=== PATIENT | female | born 2000 | race Hispanic/Latino ===

== ENCOUNTER 2023-09-07 23:52 | Emergency (ER) | payer SELFPAY ==
[2023-09-07 23:52] VITALS: BP 153/90; PULSE 100; RESP 18; TEMP 36.3; O2SAT 98; BMI 79.9
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
[2023-09-08] MEDS: Naproxen 250 MG Tablet 500 MG PO (01:36)
== END 2023-09-08 01:45 | disposition home or self-care (01) ==
PROVIDERS: Emergency Provider Emergency Medicine; Visit Provider Emergency Medicine
DX: S00.83XA Contusion of other part of head, initial encounter (principal); S10.91XA Abrasion of unspecified part of neck, initial encounter; S00.01XA Abrasion of scalp, initial encounter; V43.62XA Car passenger injured in collision with other type car in traffic accident, initial encounter
CPT/HCPCS: 99282